=== PATIENT | female | born 1995 | race African-American/Black ===

== ENCOUNTER 2018-06-19 11:13 | Emergency (ER) | payer OTHER ==
[~2018-06-19] VITALS: Ht 160 cm; Wt 87.1 kg
[2018-06-19] MEDS ORDERED: IMITREX50 MG ORAL (11:26)
--- NOTE | 2018-06-19 11:29 | NUR ---
ED Nurse Note: Pt came in due to right knee pain and swelling started thursday. S/P fall, no head injury.
--- NOTE | 2018-06-19 12:03 | NUR ---
ED Nurse Note: Xray at the bedside
--- NOTE | 2018-06-19 12:06 | Emergency Room Report ---
History of Present Illness General Chief Complaint: Lower Extremity Injury Source: Patient Present Illness HPI Patient is 23-year-old female presented after increased lower extremity pain. Patient had a recent fall and injured her right knee. She reports having been able to ambulate after the fall. She reports having decreased range of motion increased pain to the anterior portion of the knee. Pain is sharp in nature. Is worse with movement. Injury occurred last night. Allergies: Coded Allergies: No Known Allergies (Unverified , 06/19/18) Patient History Last Menstrual Period: 06/07/2018 Now: No Nursing Documentation-PMH Past Medical History: No Stated History Review of Systems All Other Systems: negative except mentioned in HPI Physical Exam Vital Signs Date Time Temp Pulse Resp B/P (MAP) Pulse Ox O2 Delivery O2 Flow Rate FiO2 06/19/18 11:21 98.6 100 20 106/62 98 Room Air General Appearance: well appearing, no apparent distress Head: normocephalic, atraumatic ENT: hearing grossly normal, normal voice Neck: full range of motion, supple Respiratory: no respiratory distress, speaking full sentences Musculoskeletal: other - tenderness over right anterior tibial tuberosity Neurologic: normal inspection, alert, oriented x3, other - ri Psychiatric: mood/affect normal Skin: no rash Medical Decision Making Diagnostic Impression: Primary Impression: Knee pain, right Last Vital Signs Date Time Temp Pulse Resp B/P (MAP) Pulse Ox O2 Delivery O2 Flow Rate FiO2 06/19/18 11:21 98.6 100 20 106/62 98 Room Air Status: improved Disposition: HOME, SELF-CARE Scripts Hydrocodone Bit/Acetaminophen 5-325* (NORCO 5-325*) 1 Each Tablet 1 TAB ORAL Q6H PRN for For Pain, #20 TAB 0 Refills Prov: Sharan Espinoza MD 06/19/18 Ibuprofen* (MOTRIN*) 600 Mg Tablet 600 MG ORAL Q8H PRN for For Pain, #30 TAB 0 Refills Prov: Sharan Espinoza MD 06/19/18 Sharan Espinoza MD Jun 19, 2018 12:06
--- NOTE | 2018-06-19 12:23 | Diagnostic Imaging Report ---
EXAM: XR Right Knee, 3 views CLINICAL HISTORY: PAIN TECHNIQUE: Three views of the right knee. COMPARISON: No relevant prior studies available. FINDINGS: Bones/joints: Prominent enthesophyte along the anterior tibial tubercle. Otherwise there are no visible fractures or dislocations. Joint spaces appear unremarkable. Soft tissues: Unremarkable. No radiodense foreign bodies. No soft tissue gas lucencies. IMPRESSION: Prominent enthesophyte along the anterior tibial tubercle. Cannot exclude a subtle enthesophyte avulsion injury or sequelae of [place]- [place] disease. Recommend correlation with point tenderness.
[2018-06-19] MEDS ORDERED: NORCO 5-325 TA1 EACH ORAL (12:35)
[2018-06-19] MEDS ORDERED: IBUPROFEN600 MG ORAL (12:35)
[2018-06-19] MEDS ORDERED: Norco 5mg/325mg tab ORAL ONE (12:45)
[2018-06-19 13:09] VITALS: BP 110/55
--- NOTE | 2018-06-19 13:10 | NUR ---
ER DISCHARGE NOTE: Patient is cleared to be discharged per ERMD, pt is aox4, on room air, with stable vital signs. pt was given dc and prescription instructions, pt was able to verbalize understanding, pt id band removed without complications. pt is able to ambulate with steady gait. pt took all belongings. Knee immbolizer and crutches given to pt.
== END 2018-06-19 13:10 | disposition home or self-care (01) ==
LOC: EMR 11:45
DX: M25.561 Pain in right knee (principal); W19.XXXA Unspecified fall, initial encounter; Y92.9 Unspecified place or not applicable
CPT/HCPCS: 99283